=== PATIENT | female | born 1980 | race Caucasian/White ===

== ENCOUNTER 2018-01-13 16:58 | Emergency (ER) | payer SELFPAY ==
[~2018-01-13] VITALS: Ht 172.7 cm; Wt 90.9 kg
[2018-01-13 17:00] VITALS: Ht 172.7 cm; Wt 90.9 kg
[2018-01-13] MEDS ORDERED: VISTARIL50 MG PO (17:01)
[2018-01-13] MEDS ORDERED: BUSPAR5 MG PO (17:02)
[2018-01-13] MEDS ORDERED: LISINOPRIL5 MG PO (17:02)
[2018-01-13] MEDS ORDERED: HYDROCHLOROTH12.5 M1 PO (17:03)
[2018-01-13] MEDS ORDERED: BUPROPION HCL150 M1 PO (17:03)
[2018-01-13] MEDS ORDERED: AMITRIPTYLINE150 MG PO (17:03)
[2018-01-13] MEDS ORDERED: GLUCOPHAGE500 MG PO (17:03)
[2018-01-13] MEDS ORDERED: HALOPERIDOL1 MG PO (17:04)
[2018-01-13] MEDS ORDERED: OMEPRAZOLE20 M1 PO (17:04)
[2018-01-13] MEDS ORDERED: IBUPROFEN600 MG PO (17:04)
[2018-01-13] MEDS ORDERED: ZYRTEC10 MG PO (17:05)
[2018-01-13] MEDS ORDERED: ZANAFLEX4 MG PO (17:05)
[2018-01-13] MEDS ORDERED: NEURONTIN800 MG PO (17:05)
[2018-01-13] MEDS ORDERED: IMITREX50 MG PO (17:06)
[2018-01-13] MEDS ORDERED: ZOCOR40 MG PO (17:06)
[2018-01-13 18:10] LABS: BASOPHILS 0.4 % (0-2); EOSINOPHILS 2.1 % (0-7); HEMATOCRIT 41.3 % (36.0-48.0); HEMOGLOBIN 14.3 g/dL (12-16); IMMATURE GRANULOCYTES 0.3 % (0-5); LYMPHOCYTES 22.2 % (15-50); MCH 30.1 pg (26.0-34.0); MCHC 34.6 g/dL (31.0-37.0); MCV 86.9 fL (80.0-100.0); MEAN PLATELET VOLUME 10.2 fL (7.4-10.4); MONOCYTES 3.5 % (2-11); NEUTROPHILS 71.5 % (40-80); PLATELET COUNT 264 10x3/uL (130-400); RBC 4.75 10x6/uL (4.00-5.40); RDW 12.6 % (11.5-14.5); WBC 10.8 10x3/uL (4.8-10.8)
[2018-01-13 18:31] LABS: APPEARANCE CLEAR (CLEAR); BILIRUBIN NEGATIVE (NEGATIVE); COLOR YELLOW (YELLOW); GLUCOSE NEGATIVE (NEGATIVE); KETONE NEGATIVE (NEGATIVE); NITRITE NEGATIVE (NEGATIVE); PROTEIN 2+ mg/dL (NEGATIVE); UROBILINOGEN NORMAL (NORMAL)
[2018-01-13 18:32] LABS: ALBUMIN 4.1 g/dL (3.4-5.0); ANION GAP 15.9 mmol/L (8-16); BILIRUBIN - TOTAL 0.26 mg/dL (0.2-1.3); CALCIUM 9.2 mg/dL (8.5-10.1); CARBON DIOXIDE 23.6 mmol/L (21.0-32.0); CREATININE - SERUM 1.2 mg/dL (0.6-1.3); POTASSIUM - SERUM 4.5 mmol/L (3.5-5.1); PROTEIN - SERUM 7.7 g/dL (6.4-8.2)
[2018-01-13 18:32] LABS: EPITHELIAL CELLS 0-5 /hpf (0-5); RED CELLS - URINE 0-5 /hpf (0-5); WHITE CELLS - URINE 0-5 /hpf (0-5)
[2018-01-13 18:33] LABS: UDS - AMPHET NEGATIVE QUAL (NEGATIVE); UDS - BARB NEGATIVE QUAL (NEGATIVE); UDS - BENZO NEGATIVE QUAL (NEGATIVE); UDS - COCAINE NEGATIVE QUAL (NEGATIVE); UDS - OPIATE NEGATIVE QUAL (NEGATIVE); UDS - PCP NEGATIVE QUAL (NEGATIVE); UDS - THC POSITIVE QUAL (NEGATIVE)
[2018-01-13 18:34] LABS: HCG URINE NEGATIVE (NEGATIVE)
[2018-01-13 19:33] VITALS: BP 144/93
== END 2018-01-13 19:30 | disposition home or self-care (01) ==
LOC: D.ER 16:58
PROVIDERS: Emergency Medicine
DX: R50.9 Fever, unspecified (principal); G40.909 Epilepsy, unspecified, not intractable, without status epilepticus; E11.9 Type 2 diabetes mellitus without complications; I10 Essential (primary) hypertension